=== PATIENT | male | born 1990 | race Caucasian/White ===

== ENCOUNTER → 2016-10-15 | Outpatient (CLI) | payer OTHER ==
--- NOTE | 2016-10-15 08:18 | MR ---
EXAMINATION TYPE: MR brain wo/w con DATE OF EXAM: 10/15/2016 8:01 AM COMPARISON: NONE HISTORY: Episodic tension-type headache and localized idiopathic epileptic seizures per order (G40.00 9 and G44.219) TECHNIQUE: Multiplanar, multisequence images of the brain and brainstem is performed without and with IV contras t, utilizing 15 mL intravenous MultiHance . FINDINGS: Diffusion weighted images demonstrate no evidence of a recent infarct or other diffusion ab normality. There is no extra-axial fluid collection or significant white matter signal abnormality. The ventricular system and cisternal spaces are normal in size and appearance. The brain volume is age appropriate. T2 coronal weighted images show hippocampal gyri to appear symmetric and felt within normal limits. Midline structures demonstrate normal morphology. The craniocervical junction appears within normal limits. Post contrast images demonstrate no abnormal enhancement. The dural venous sinuses appear pa tent. The visualized sinuses are clear and the globes are intact. IMPRESSION: No significant finding is seen to account for patient's symptoms.
== END | disposition home or self-care (01) ==
LOC: RADMRIMAIN 07:14
PROVIDERS: ATTEND Psychiatry & Neurology Neurology
DX: G40.009 Localization-related (focal) (partial) idiopathic epilepsy and epileptic syndromes with seizures of localized onset, not intractable, without status epilepticus (principal); G44.219 Episodic tension-type headache, not intractable
CPT/HCPCS: 70553; A9577

== ENCOUNTER 2020-09-05 11:15 | Emergency (ER) | payer OTHER ==
--- NOTE | 2020-09-05 11:24 | ED ---
General Adult HPI - General Stated complaint: Seizure Time Seen by Provider: 09/05/20 11:20 Source: patient, EMS, RN notes reviewed, old records reviewed - History of Present Illness Initial comments: 29-year-old male presenting for generalized seizure. Patient is alert and oriented at the time my evaluation. He does not want evaluation or treatment. He states he has to go home be states that he has seizures approximately one or 2 annually and is not on any current medication secondary to side effects. He is not currently following with a primary care physician. Patient is requesting to leave AGAINST MEDICAL ADVICE. - Related Data Previous Rx's Medication Instructions Recorded Phenytoin Sodium Extended 100 mg PO TID #90 capsule 10/27/14 [Dilantin] Allergies Allergy/AdvReac Type Severity Reaction Status Date / Time No Known Allergies Allergy Verified 06/19/15 21:51 Review of Systems ROS Statement: Those systems with pertinent positive or pertinent negative responses have been documented in the HPI. ROS Other: All systems not noted in ROS Statement are negative. Past Medical History Past Medical History: Seizure Disorder History of Any Multi-Drug Resistant Organisms: None Reported Past Surgical History: No Surgical Hx Reported Past Psychological History: No Psychological Hx Reported Past Alcohol Use History: Occasional Past Drug Use History: None Reported General Exam General appearance: alert, in no apparent distress Head exam: Present: atraumatic, normocephalic Eye exam: Present: normal appearance, PERRL ENT exam: Present: normal exam Respiratory exam: Absent: respiratory distress GI/Abdominal exam: Absent: distended Extremities exam: Present: normal inspection. Absent: pedal edema Neurological exam: Present: alert, CN II-XII intact, normal gait. Absent: motor sensory deficit Psychiatric exam: Present: normal affect, normal mood. Absent: suicidal ideation Skin exam: Present: warm, dry, intact Medical Decision Making - Medical Decision Making Patient will presenting with seizure, unwilling to be evaluated. He is alert and oriented he is aware that he has not been fully evaluated for this seizure. He is aware of the risks. He requests to leave the emergency department immediately. Patient is capable of making his own decisions. He has a nonfocal neurologic exam and is ambulatory. Disposition Clinical Impression: Generalized seizure Disposition: Left Against Medical Advice Condition: Fair Is patient prescribed a controlled substance at d/c from ED?: No Referrals: None,Stated [Primary Care Provider] - 1-2 days Aaron Posada MD [STAFF PHYSICIAN] - 1-2 days Marjorie Varghese MD [REFERRING] - 1-2 days Time of Disposition: 11:24
[2020-09-05 11:31] VITALS: BP 124/86; PULSE 116; RESP 18; TEMP 98.6
== END 2020-09-05 11:46 | disposition left against medical advice (07) ==
LOC: EC 11:15
DX: G40.909 Epilepsy, unspecified, not intractable, without status epilepticus (principal)
CPT/HCPCS: 99284

== ENCOUNTER 2021-07-21 12:27 | Emergency (ER) | payer OTHER ==
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
[2021-07-21 13:54] LABS: Basophils % (A) 0 %; Eosinophils # (A) 0.1 k/uL (0-0.7); Eosinophils % (A) 1 %; HCT 49.6 % (39.0-53.0); HGB 17.4 gm/dL (13.0-17.5); Lymphocytes # (A) 0.9 k/uL (1.0-4.8); Lymphocytes % (A) 9 %; MCH 31.3 pg (25.0-35.0); MCHC 35.1 g/dL (31.0-37.0); MCV 89.4 fL (80.0-100.0); Mean Platelet Volume 7.6; Monocytes # (A) 0.4 k/uL (0-1.0); Monocytes % (A) 4 %; Neutrophils # (A) 8.6 k/uL (1.3-7.7); Neutrophils % (A) 86 %; Platelet Count 282 k/uL (150-450); RBC 5.55 m/uL (4.30-5.90); RDW 11.9 % (11.5-15.5)
[2021-07-21 14:03] LABS: African American GFR (CKD) >90 (>60 ml/min/1.73 sqM); Alcohol <10 mg/dL; Anion Gap 10 mmol/L; Blood Urea Nitrogen 11 mg/dL (9-20); Calcium 10.1 mg/dL (8.4-10.2); Carbon Dioxide 23 mmol/L (22-30); Chloride 107 mmol/L (98-107); Glucose 100 mg/dL (74-99); Non-African American GFR(CKD) >90 (>60 ml/min/1.73 sqM); Potassium 4.2 mmol/L (3.5-5.1); Sodium 140 mmol/L (137-145)
[2021-07-21 14:09] LABS: INR 0.9 (<1.2); Partial Thromboplastin Time 22.8 sec (22.0-30.0); Prothrombin Time 9.8 sec (9.0-12.0)
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
== END 2021-07-21 15:10 | disposition home or self-care (01) ==
LOC: EC 12:27
DX: G40.909 Epilepsy, unspecified, not intractable, without status epilepticus (principal); V89.2XXA Person injured in unspecified motor-vehicle accident, traffic, initial encounter; Y92.410 Unspecified street and highway as the place of occurrence of the external cause
CPT/HCPCS: 36415; 93005; 80048; 85025; 85610; 85730; 70450; 99284; G0480; 80320